=== PATIENT | male | born 1975 | race Asian ===

== ENCOUNTER 2019-04-13 22:26 | Emergency (ER) | payer BC ==
[~2019-04-13] VITALS: Ht 175.3 cm; Wt 98.4 kg
[2019-04-14 02:09] VITALS: BP 145/100; TEMP 97.9
== END 2019-04-14 02:10 | disposition home or self-care (01) ==
LOC: ED 22:26
DX: M54.2 Cervicalgia (principal); M54.6 Pain in thoracic spine; M54.5 Low back pain; V43.52XA Car driver injured in collision with other type car in traffic accident, initial encounter
CPT/HCPCS: 96372; 99283; J1885

== ENCOUNTER 2019-04-27 08:19 | Outpatient (CLI) | payer BC | END 2019-04-27 22:45 | disposition home or self-care (01) | LOC: RAD 08:19 | DX: M25.512 Pain in left shoulder (principal) ==

== ENCOUNTER 2020-10-03 11:38 | Emergency (ER) | payer BC ==
[~2020-10-03] VITALS: Ht 175.3 cm; Wt 98.4 kg
[2020-10-03 11:46] VITALS: BP 149/70; TEMP 99
[2020-10-03 12:36] LABS: PLATELET COUNT 206 K/uL (142-355)
[2020-10-03 12:48] LABS: POTASSIUM 4.1 mmol/L (3.6-5.2)
== END 2020-10-03 14:23 | disposition home or self-care (01) ==
LOC: ED 11:38
PROVIDERS: Emergency Medicine Emergency Medical Services
DX: R31.9 Hematuria, unspecified (principal)
CPT/HCPCS: 80048; 81000; 85027; 85610; 99283

== ENCOUNTER 2022-05-14 15:59 | Outpatient (CLI) | payer OTHER | END 2022-05-14 19:03 | disposition home or self-care (01) | LOC: RAD 15:59 | PROVIDERS: ATTEND Nurse Practitioner Family | DX: M54.16 Radiculopathy, lumbar region (principal) ==

== ENCOUNTER 2022-08-01 09:02 | Emergency (ER) | payer BC ==
[~2022-08-01] VITALS: Ht 175.3 cm; Wt 106.1 kg
[2022-08-01 09:09] VITALS: TEMP 97
[2022-08-01] MEDS ORDERED: HYDR25TA60 PO (09:19)
[2022-08-01] MEDS ORDERED: AMLODIPINE BESYLATE PO (09:19)
[2022-08-01] MEDS ORDERED: LOVASTATIN20 MG PO (09:20)
[2022-08-01 09:57] LABS: PLATELET COUNT 224 K/uL (142-355)
[2022-08-01 10:04] LABS: POTASSIUM 3.4 mmol/L (3.6-5.2)
[2022-08-01] MEDS ORDERED: K-TAB20 MEQ PO (10:40)
[2022-08-01 10:54] VITALS: BP 156/94
== END 2022-08-01 11:23 | disposition home or self-care (01) ==
LOC: ED 09:02
PROVIDERS: Emergency Medicine Emergency Medical Services
DX: I10 Essential (primary) hypertension (principal); E87.6 Hypokalemia; Z91.14 Patient's other noncompliance with medication regimen
CPT/HCPCS: 80048; 83735; 84484; 85027; 93005; 96360; 99284